=== PATIENT | male | born 1960 | race Caucasian/White ===

== ENCOUNTER 2023-06-22 11:53 | Emergency (ER) | payer OTHER ==
[~2023-06-22] VITALS: Ht 167.6 cm; Wt 87.3 kg
[2023-06-22] MEDS ORDERED: DIOVAN160 MG PO (13:25)
[2023-06-22] MEDS ORDERED: HYDROCHLOROTH12.5 MG PO (13:25)
[2023-06-22] MEDS ORDERED: NORVASC5 MG PO (13:25)
[2023-06-22 13:35] VITALS: BP 00/00
== END 2023-06-22 13:45 | disposition home or self-care (01) ==
LOC: ED 11:53
DX: Z76.0 Encounter for issue of repeat prescription (principal); I10 Essential (primary) hypertension
CPT/HCPCS: 99281

== ENCOUNTER 2025-01-26 18:08 | Emergency (ER) | payer MEDICARE, OTHER ==
[~2025-01-26] VITALS: Ht 167.6 cm; Wt 90.0 kg
[~2025-01-26 18:08] MED LIST: DIOVAN160 MG PO; HYDROCHLOROTH12.5 MG PO; NORVASC5 MG PO
[2025-01-26] MEDS ORDERED: AMLODIPINE-VAL1 EAC3 PO (18:40)
[2025-01-26] MEDS ORDERED: HYDROCODONE/ACETA 7.5/325 TAB PO ONE (19:30)
[2025-01-26] MEDS ORDERED: LIDOCAINE/RACEPINEP/TETRACAINE 3 ML SYR TOP ONE (19:30)
[2025-01-26 20:57] VITALS: BP 177/97
== END 2025-01-26 20:58 | disposition home or self-care (01) ==
LOC: ED 18:08
DX: S00.03XA Contusion of scalp, initial encounter (principal); I10 Essential (primary) hypertension; Z79.899 Other long term (current) drug therapy; W20.8XXA Other cause of strike by thrown, projected or falling object, initial encounter
CPT/HCPCS: 70450; 99283-25; A9270